=== PATIENT | male | born 2000 | race African-American/Black ===

== ENCOUNTER 2020-08-17 21:12 | Emergency (ER) | payer MEDICAID ==
[~2020-08-17] VITALS: Ht 175.3 cm; Wt 97.1 kg
[2020-08-17 21:46] VITALS: BP 122/81
--- NOTE | 2020-08-17 21:51 | NUR ---
Pt came in for c/o anxiety. Pt reportedly took 500mg edible at 1900 and started to feel nauseated at 1950 while eating pork fries. Patient vomited and came to the ED with anxiety. Pt was unsure of whether to stay in the ED. Ultimately, the patient decided to leave without being seen.
== END 2020-08-17 21:58 | disposition left against medical advice (07) ==
LOC: EMR 21:54
DX: R11.10 Vomiting, unspecified (principal); Z53.21 Procedure and treatment not carried out due to patient leaving prior to being seen by health care provider